=== PATIENT | male | born 2000 | race Caucasian/White ===

== ENCOUNTER 2021-04-24 08:09 | Emergency (ER) | payer OTHER ==
[~2021-04-24] VITALS: Ht 195 cm; Wt 104.5 kg
--- OUTSIDE RECORDS SUMMARY | 2021-04-24 08:18 | XMS REPORT | Summary of Care ---
Author Author [facility] Organization [facility] Address Unknown Phone Unavailable Encounter DAVIN Raygoza [id number] Date(s): 03/09/21 - 03/14/21 [facility] [address] [id number] Encounter Diagnosis Sore throat (Discharge Diagnosis) - 03/09/21 Discharge Disposition: Home - Attending Physician: MABEL FITZGERALD MD Vital Signs Most recent to 1 oldest [Reference Range]: Temperature 97.5 DegF [96.8-99.7 DegF] (03/09/21 10:48 AM) Temp Method Temporal (03/09/21 10:48 AM) Pulse Rate [60-100 44 bpm bpm] *LOW* (03/09/21 10:48 AM) Respiratory Rate 18 br/min [15-20 br/min] (03/09/21 10:48 AM) Mean Arterial 92 mmHg Pressure [65 mmHg] (03/09/21 10:48 AM) Blood Pressure 150/63 mmHg [90-180/50-90 mmHg] (03/09/21 10:48 AM) Blood Pressure Automatic Method (03/09/21 10:48 AM) Blood Pressure Sitting Position (03/09/21 10:48 AM) Problem List No Known Problems Allergies, Adverse Reactions, Alerts No Known Allergies Medications amoxicillin 875 mg oral tablet 1 TAB, PO, Q12H (Every 12 hours), X 10 day, # 20 TAB, 0 Refill(s), Pharmacy: [id number], 182.9, 10/17/19 16:50:00 CDT, Clinical Height, cm, 96.5, 16:50:00 CDT, Clinical Weight, kg Start Date: 03/09/21 Stop Date: 03/19/21 Status: Ordered Results No data available for this section Immunizations No data available for this section Procedures No data available for this section Social History No data available for this section Functional Status No data available for this section Assessment and Plan No data available for this section Hospital Discharge Instructions No data available for this section
--- NOTE | 2021-04-24 08:50 | ED Abdominal Pain ---
General Chief Complaint: Abdominal/GI Problems Stated Complaint: N/V,ABD PAIN Nursing Triage Note: AMB TO ROOM REPORTS IS HAVING R UPPER QUAD PAIN VOMITED TODAY. HAS HAD DIARRHEA FOR SEVERAL DAYS. WAS SEEN AT [facility] LAST WEEK FOR URI COVID WAS NEG. Source of Information: Patient Exam Limitations: No Limitations (RUSS ROWELL STUDENT) History of Present Illness Date Seen by Provider: Apr 24, 2021 Time Seen by Provider: 08:25 Initial Comments This is Hernandez, a 21 yo M, who is here with c/o abdominal pain. Pt states that last week he had upper respiratory symptoms including, cough, rhinitis, purulent discharge, and increased work of breathing. Pt went to [facility] health center and tested negative for covid-19.At this point in time, he was given Amoxicillin, last dose was 04/21/21. For the past six days pt has been having periumbilical and epigastric pain described as dull and achy, rated at 4/10. Denies radiation. Pt has been having diarrhea for the same amount of time, states that it is yellow and will sometimes have blood in it. Pt has been vomiting bile with some blood in it, this started this morning. Pt reports that he was on the phone with his mother this morning and then woke up, ten minutes later, lying on the ground with his phone next to him, has previous history of syncope. Had chills and diaphoresis with vomiting this morning. Positive for abdominal pain, diarrhea, nausea, vomiting, loss of appetite and fatigue. Denies fevers, headaches, chest pain, palpitations, constipation. Timing/Duration: 6-7 Days Severity/Quality: Mild Location: Periumbilical (worse on R side) Radiation: No Radiation Activities at Onset: None Modifying Factors: Improves With Exercise; Worsens With Vomiting Associated Symptoms: Diaphoresis, Fever/Chills, Fatigue, Nausea/Vomiting, Syncope (RUSS ROWELL STUDENT) Allergies and Home Medications Allergies Coded Allergies: No Known Drug Allergies (Unverified , 04/24/21) Patient Home Medication List Home Medication List Reviewed: Yes (EDELMIRA WILSON MD) Famotidine (Pepcid) 20 Mg Tablet, 20 MG PO BID Prescribed by: EDELMIRA HAYNES on 04/24/21 1029 Ondansetron (Ondansetron Odt) 4 Mg Tab.rapdis, 4 MG PO Q4H PRN for NAUSEA/VOMITING Prescribed by: EDELMIRA HAYNES on 04/24/21 1029 Review of Systems Review of Systems Constitutional: chills, diaphoresis, malaise EENTM: No Blurred Vision, No Double Vision Respiratory: Cough; Denies Shortness of Air, Denies Stridor, Denies Wheezing Cardiovascular: Denies Chest Pain, Denies Palpitations; Syncope Gastrointestinal: Abdominal Pain, Blood Streaked Stools; Denies Constipated; Diarrhea, Nausea, Poor Appetite, Vomiting Genitourinary: Denies Burning, Denies Discharge, Denies Drainage Musculoskeletal: no symptoms reported Skin: no symptoms reported Psychiatric/Neurological: No Symptoms Reported (RUSS ROWELL) Past Kxaamkb-Mhutww-Dcxkde Hx Patient Social History Tobacco Use?: No Use of E-Cig and/or Vaping dev: Yes Substance use?: No Alcohol Use?: Yes Alcohol Frequency: Rarely Pt feels they are or have been: No (RUSS ROWELL) Past Medical History Surgeries: Yes ( ) Orthopedic (ulnar ligament repair) Respiratory: No Cardiac: No Genitourinary: No Gastrointestinal: No Musculoskeletal: No (RUSS ROWELL) Family Medical History Diabetes (maternal grandfather ) (RUSS ROWELL) Physical Exam Vital Signs Vital Signs - First Documented 04/24/21 08:19 Temp 36.2 Pulse 57 Resp 18 B/P (MAP) 144/86 (105) Pulse Ox 95 O2 Delivery Room Air (EDELMIRA WILSON MD) Vital Signs Capillary Refill : Less Than 3 Seconds (RUSS ROWELL STUDENT) Height/Weight/BMI Height: '" Weight: lbs. oz. kg; 27.00 BMI Method: General Appearance: WD/WN, mild distress HEENT: No scleral icterus (L) Neck: full range of motion Respiratory: chest non-tender, lungs clear, normal breath sounds, no respiratory distress Cardiovascular: normal peripheral pulses, regular rate, rhythm, no murmur Peripheral Pulses: 2+ Radial Pulses (L) Gastrointestinal: normal bowel sounds, tenderness (periumbilical) Neurologic/Psychiatric: spinner frame II-XII nml as tested, alert, normal mood/affect, oriented x 3 Skin: normal color, warm/dry (RUSS ROWELL MED STUDENT) Progress/Results/Core Measures Results/Orders Lab Results Laboratory Tests Test 04/24/21 09:00 04/24/21 09:30 Range/Units White Blood Count 6.0 4.3-11.0 10^3/uL Red Blood Count 4.95 4.30-5.52 10^6/uL Hemoglobin 14.9 13.3-17.7 g/dL Hematocrit 43 40-54 % Mean Corpuscular Volume 86 80-99 fL Mean Corpuscular Hemoglobin 30 25-34 pg Mean Corpuscular Hemoglobin Concent 35 32-36 g/dL Red Cell Distribution Width 12.8 10.0-14.5 % Platelet Count 238 130-400 10^3/uL Mean Platelet Volume 10.0 9.0-12.2 fL Immature Granulocyte % (Auto) 0 % Neutrophils (%) (Auto) 61 42-75 % Lymphocytes (%) (Auto) 25 12-44 % Monocytes (%) (Auto) 11 0-12 % Eosinophils (%) (Auto) 2 0-10 % Basophils (%) (Auto) 1 0-10 % Neutrophils # (Auto) 3.7 1.8-7.8 10^3/uL Lymphocytes # (Auto) 1.5 1.0-4.0 10^3/uL Monocytes # (Auto) 0.6 0.0-1.0 10^3/uL Eosinophils # (Auto) 0.1 0.0-0.3 10^3/uL Basophils # (Auto) 0.1 0.0-0.1 10^3/uL Immature Granulocyte # (Auto) 0.0 0.0-0.1 10^3/uL Prothrombin Time 14.2 12.2-14.7 SEC INR Comment 1.1 0.8-1.4 Activated Partial Thromboplast Time 27 24-35 SEC Sodium Level 139 135-145 MMOL/L Potassium Level 3.8 3.6-5.0 MMOL/L Chloride Level 104 98-107 MMOL/L Carbon Dioxide Level 23 21-32 MMOL/L Anion Gap 12 5-14 MMOL/L Blood Urea Nitrogen 12 7-18 MG/DL Creatinine 0.93 0.60-1.30 MG/DL Estimat Glomerular Filtration Rate 102 BUN/Creatinine Ratio 13 Glucose Level 97 70-105 MG/DL Calcium Level 9.9 8.5-10.1 MG/DL Corrected Calcium 8.5-10.1 MG/DL Magnesium Level 2.2 1.6-2.4 MG/DL Total Bilirubin 1.2 H 0.1-1.0 MG/DL Aspartate Amino Transf (AST/SGOT) 28 5-34 U/L Alanine Aminotransferase (ALT/SGPT) 22 0-55 U/L Alkaline Phosphatase 88 40-136 U/L C-Reactive Protein High Sensitivity 0.50 0.00-0.50 MG/DL Total Protein 7.7 6.4-8.2 GM/DL Albumin 4.6 H 3.2-4.5 GM/DL Lipase 9 8-78 U/L Urine Color YELLOW Urine Clarity CLEAR Urine pH 6.0 5-9 Urine Specific Eldena >=1.030 1.016-1.022 Urine Protein NEGATIVE NEGATIVE Urine Glucose (UA) NEGATIVE NEGATIVE Urine Ketones 2+ H NEGATIVE Urine Nitrite NEGATIVE NEGATIVE Urine Bilirubin NEGATIVE NEGATIVE Urine Urobilinogen 0.2 < = 1.0 MG/DL Urine Leukocyte Esterase NEGATIVE NEGATIVE Urine RBC (Auto) NEGATIVE NEGATIVE Urine RBC NONE /HPF Urine WBC NONE /HPF Urine Squamous Epithelial Cells RARE /HPF Urine Crystals PRESENT H /LPF Urine Amorphous Sediment RARE RUBY URATES H /LPF Urine Bacteria NEGATIVE /HPF Urine Casts NONE /LPF Urine Mucus MODERATE H /LPF Urine Culture Indicated NO (EDELMIRA WILSON MD) My Orders Orders - EDELMIRA WILSON MD Ed Iv/Invasive Line Start (04/24/21 08:46) Ekg Tracing (04/24/21 08:46) Monitor-Rhythm Ecg Trace Only (04/24/21 08:46) Cbc With Automated Diff (04/24/21 08:46) Comprehensive Metabolic Panel (04/24/21 08:46) Hs C Reactive Protein (04/24/21 08:46) Lipase (04/24/21 08:46) Ua Culture If Indicated (04/24/21 08:46) Ed Iv/Invasive Line Start (04/24/21 08:46) Lactated Ringers (Lr 1000 Ml Iv Solution (04/24/21 09:00) Stool Culture (04/24/21 08:46) Fecal Wbc (04/24/21 08:46) Occult Blood Stool (04/24/21 08:46) Ondansetron Injection (Zofran Injectio (04/24/21 09:00) Magnesium (04/24/21 08:50) Protime With Inr (04/24/21 09:00) Partial Thromboplastin Time (04/24/21 09:00) Famotidine Injection (Pepcid Injection) (04/24/21 10:30) (EDELMIRA WILSON MD) Medications Given in ED Current Medications Medications Dose Ordered Sig/Rubi Route Start Time Stop Time Status Last Admin Dose Admin Famotidine 20 mg ONCE ONCE IVP 04/24/21 10:30 04/24/21 10:31 DC 04/24/21 10:30 20 MG Lactated Ringer's 1,000 ml @ 0 mls/hr Q0M ONCE IV 04/24/21 09:00 04/24/21 09:01 DC 04/24/21 09:02 1,000 MLS/HR Ondansetron HCl 8 mg ONCE ONCE IVP 04/24/21 09:00 04/24/21 09:01 DC 04/24/21 09:02 8 MG (EDELMIRA WILSON MD) Vital Signs/I&O 04/24/21 04/24/21 08:19 10:43 Temp 36.2 Pulse 57 57 Resp 18 18 B/P (MAP) 144/86 (105) 146/7 Pulse Ox 95 98 O2 Delivery Room Air Room Air (EDELMIRA WILSON MD) Blood Pressure Mean: 105 Progress Progress Note : Time: 10:30 Progress Note Hernandez is here for abdominal pain. Pt states that he is doing much better after zofran and pepcid. Advised to continue with a clear diet for the next 24 hours. Avoid dairy and greasy foods until 48 hours post symptom-free. It was recommended to talk with a general surgeon about egd/colonscopy due to the hematochezia and hematemesis. A at-home stool culture was ordered to evaluate colonic mayte disruption and because he recently finished a course of Amoxicillin. \\ Zofran and Pepcid being sent to [facility]. Pt is agreeable to the above plan. Reviewed concerning signs and symptoms, for which to return to the ED. (RUSS ROWELL MED STUDENT) Progress Note : Progress Note Patient's work-up was relatively unremarkable. He responded well to fluids, Pepcid, and Zofran in the ER. EVONNE was performed and demonstrated no masses or other abnormalities at the rectum. Hemoccult was negative. There was no active bleeding in the ER and he produced no stool specimens. Kit for stool specimen collection and order for the lab was provided at discharge. We discussed referral to a surgeon for possible endoscopy. Patient reported no family history of inflammatory bowel disease. He was discharged in stable condition. We also discussed patient's syncope. He reports this seems to be psychogenic in nature, stating that he will occasionally faint during psychosocial stress. He was having a stressful conversation with his mother on the phone at the time of his syncopal event this morning. (EDELMIRA WILSON MD) Initial ECG Impression Date: Apr 24, 2021 Initial ECG Impression Time: 08:54 Initial ECG Rate: 45 Initial ECG Rhythm: S.Mitch Comment Sinus bradycardia with no ST elevation or depression. ST changes likely represent early repolarization of juvenile pattern. Heart rate of 45 is likely normal in this fit young man. Questionable LVH by automated read. No abnormal intervals. 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 Decision time for Depature: 10:23 (EDELMIRA WILSON MD) Referrals: JUSTIN CUEVAS BRETT D DO KIDO, TAKAAKI MD [facility] (PCP) Primary Care Physician Patient Instructions: Abdominal Pain, Adult ED, Bloody Stools, Adult ED Add. Discharge Instructions: Start with a noncarbonated clear liquid diet for the next 24 hours. Clear liquids include sports drinks, Pedialyte, water, clear juices, Jell-O, chicken broth, etc. After 24 hours you may gradually advance your diet with small quantities of bland food as tolerated. Avoid fatty or greasy foods or dairy products until your diarrhea has resolved for at least 48 hours. Collect a stool specimen in the toilet hat provided. Place it in a jar and label it with your name, time, and date. Return the specimen jar along with the lab order to the hospital as soon as possible after it is collected. Follow-up at the [facility] or at your primary care provider's office as soon as possible. Because there is concern for blood in your stool and vomit, you should consider referral to a surgeon for colonoscopy and/or EGD (scopes of your colon, stomach and esophagus). For pain you may take Tylenol (acetaminophen) up to 1000 mg every 6 hours as needed. Avoid use of NSAID medications such as ibuprofen or naproxen as these may worsen stomach irritation and bleeding. A list of local surgeons is provided below for your convenience. Use Pepcid (famotidine) twice a day for the next couple of weeks as prescribed. Use the Zofran (ondansetron) as prescribed for nausea and vomiting as needed. Call with questions or concerns. Return to the ER if you have any worsening of condition. All discharge instructions reviewed with patient and/or family. Voiced understanding. Scripts Famotidine (Pepcid) 20 Mg Tablet 20 MG PO BID, #30 TAB Prov: EDELMIRA WILSON MD 04/24/21 Ondansetron (Ondansetron Odt) 4 Mg Tab.rapdis 4 MG PO Q4H PRN for NAUSEA/VOMITING, #10 TAB Prov: EDELMIRA WILSON MD 04/24/21 Medical Student Attestation and Attending Note: I have personally interviewed and examined this patient along with Russ Rowell MS4. I have reviewed student documentation including history, physical, and assessments. I agree with the documentation except where otherwise noted. Exam: General: Alert, oriented, no acute distress, well developed HEENT: Normocephalic and atraumatic Heart: Regular rate and rhythm without murmur Lungs: Clear to auscultation bilaterally with normal effort Abdomen: Soft, tender in the epigastrium, nondistended, normal bowel sounds Neuropsych: Alert, oriented, no focal deficits Skin: Warm and dry without rashes, abrasion on the left knee (EDELMIRA WILSON MD) Copy Copies To 1: ELIZABETH KAHN MD, KATHRYN MED STUDENT Apr 24, 2021 08:50 EDELMIRA WILSON MD Apr 24, 2021 10:28
[2021-04-24] MEDS ORDERED: LACTATED RINGERS 1,000 ML IV ONE (09:00)
[2021-04-24] MEDS ORDERED: ONDANSETRON 4 MG/2 ML (SDV) Z0FRAN IVP ONE (09:00)
[2021-04-24 09:15] LABS: BASOPHILS # (AUTO) 0.1 10^3/uL (0.0-0.1); BASOPHILS % (AUTO) 1 % (0-10); EOSINOPHILS # (AUTO) 0.1 10^3/uL (0.0-0.3); EOSINOPHILS % (AUTO) 2 % (0-10); HEMATOCRIT 43 % (40-54); HEMOGLOBIN 14.9 g/dL (13.3-17.7); LYMPHOCYTES # (AUTO) 1.5 10^3/uL (1.0-4.0); LYMPHOCYTES % (AUTO) 25 % (12-44); MEAN CORPUSCULAR HEMOGLOBIN 30 pg (25-34); MEAN CORPUSCULAR HGB CONC 35 g/dL (32-36); MEAN CORPUSCULAR VOLUME 86 fL (80-99); MONOCYTES # (AUTO) 0.6 10^3/uL (0.0-1.0); MONOCYTES % (AUTO) 11 % (0-12); NEUTROPHILS # (AUTO) 3.7 10^3/uL (1.8-7.8); NEUTROPHILS % (AUTO) 61 % (42-75); PLATELET COUNT 238 10^3/uL (130-400)
[2021-04-24 09:29] LABS: ALBUMIN 4.6 GM/DL (3.2-4.5); CHLORIDE 104 MMOL/L (98-107); POTASSIUM 3.8 MMOL/L (3.6-5.0); SODIUM 139 MMOL/L (135-145)
[2021-04-24 09:30] LABS: INR 1.1 (0.8-1.4); PROTHROMBIN TIME PATIENT 14.2 SEC (12.2-14.7)
[2021-04-24 09:31] LABS: CALCIUM 9.9 MG/DL (8.5-10.1)
[2021-04-24 09:32] LABS: GLUCOSE 97 MG/DL (70-105); TOTAL PROTEIN 7.7 GM/DL (6.4-8.2)
[2021-04-24 09:33] LABS: CARBON DIOXIDE 23 MMOL/L (21-32)
[2021-04-24 09:34] LABS: BILIRUBIN,TOTAL 1.2 MG/DL (0.1-1.0)
[2021-04-24 09:35] LABS: ALKALINE PHOSPHATASE 88 U/L (40-136)
[2021-04-24 09:35] LABS: BILIRUBIN,URINE NEGATIVE (NEGATIVE); CLARITY,URINE CLEAR; COLOR,URINE YELLOW; GLUCOSE, URINE (UA) NEGATIVE (NEGATIVE); KETONES,URINE 2+ (NEGATIVE); LEUKOCYTE ESTERASE ,URINE NEGATIVE (NEGATIVE); NITRITE,URINE NEGATIVE (NEGATIVE); PROTEIN,URINE NEGATIVE (NEGATIVE)
[2021-04-24 09:36] LABS: CREATININE SERUM 0.93 MG/DL (0.60-1.30); GFR ESTIMATED 102
[2021-04-24 09:37] LABS: BUN/CREATININE RATIO 13
[2021-04-24 09:38] LABS: ALANINE AMINOTRANSFERASE 22 U/L (0-55); MAGNESIUM 2.2 MG/DL (1.6-2.4)
[2021-04-24 09:39] LABS: LIPASE 9 U/L (8-78)
[2021-04-24 09:46] LABS: AMORPHOUS SEDIMENT,UR RARE AMOR URATES /LPF; BACTERIA,URINE NEGATIVE /HPF; SQUAMOUS EPITHELIAL CELL,UR RARE /HPF
[2021-04-24] MEDS ORDERED: FAMO-119 PO (10:29)
[2021-04-24] MEDS ORDERED: ONDA4TAB11 PO (10:29)
[2021-04-24] MEDS ORDERED: FAMOTIDINE 20MG/2ML IV (PEPCID) IVP ONE (10:30)
[2021-04-24 10:43] VITALS: BP 146/7
== END 2021-04-24 10:43 | disposition home or self-care (01) ==
LOC: ER 08:15
DX: R10.33 Periumbilical pain (principal); R19.7 Diarrhea, unspecified; K92.1 Melena; K92.0 Hematemesis; R55 Syncope and collapse
CPT/HCPCS: 36415; 80053; 81000; 83690; 83735; 85025; 85610; 85730; 86141; 93005

== ENCOUNTER → 2021-04-24 | Outpatient (CLI) | payer OTHER ==
[~2021-04-24] MED LIST: FAMO-119 PO; ONDA4TAB11 PO
== END ==
LOC: LAB 21:36
PROVIDERS: ATTEND Family Medicine
DX: K92.1 Melena (principal); R11.2 Nausea with vomiting, unspecified; R19.7 Diarrhea, unspecified
CPT/HCPCS: 82274; 87015; 87045; 87046; 87324; 87328; 87329; 87449; 87899

== ENCOUNTER 2021-05-04 21:05 | Emergency (ER) | payer OTHER ==
[~2021-05-04] VITALS: Ht 195.6 cm; Wt 104.5 kg
--- NOTE | 2021-05-04 21:19 | ED Head Injury ---
General Chief Complaint: Laceration Stated Complaint: HIT IN HEAD Source: patient Exam Limitations: no limitations History of Present Illness Date Seen by Provider: May 04, 2021 Time Seen by Provider: 21:17 Initial Comments To ER with reports that he was doing some sort of exercise with a bungee cord attached to a fence. The spring that was attaching the bungee cord to the fence broke and came back and hit him in the center of the forehead. He has a laceration to this area as well as a severe headache. He did pass out but he states that he only passed out after he opened his eyes and saw all of the blood. He had some nausea but no vomiting. No dizziness. No blood thinner use. Tetanus was updated in 2019. Occurred: just prior to arrival Severity: moderate Location: frontal Method of Injury: unknown Loss of Consciousness: no loss of consciousness Associated Systoms: Denies Symptoms Allergies and Home Medications Allergies Coded Allergies: No Known Drug Allergies (Unverified , 04/24/21) Patient Home Medication List Home Medication List Reviewed: Yes Discontinued Medications Famotidine (Pepcid) 20 Mg Tablet, 20 MG PO BID Discontinued Reason: No Longer Taking Prescribed by: EDELMIRA HAYNES on 04/24/21 1029 Last Action: Discontinued Ondansetron (Ondansetron Odt) 4 Mg Tab.rapdis, 4 MG PO Q4H PRN for NAUSEA/VOMITING Discontinued Reason: No Longer Taking Prescribed by: EDELMIRA HAYNES on 04/24/21 1029 Last Action: Discontinued Review of Systems Review of Systems Constitutional: see HPI Eyes: No Symptoms Reported Ears, Nose, Mouth, Throat: no symptoms reported Respiratory: no symptoms reported Cardiovascular: no symptoms reported Genitourinary: no symptoms reported Musculoskeletal: no symptoms reported Skin: no symptoms reported Psychiatric/Neurological: See HPI; Denies Cognitive Dysfunction; Headache Endocrine: No Symptoms Reported Hematologic/Lymphatic: No Symptoms Reported Past Jgyfoht-Jkxxdi-Egeoha Hx Patient Social History Tobacco Use?: Yes Substance use?: No Alcohol Use?: Yes Alcohol Frequency: Once in a while Pt feels they are or have been: No Past Medical History Surgery/Hospitalization HX: ortho Surgeries: Yes ( ) Orthopedic Respiratory: No Cardiac: No Genitourinary: No Gastrointestinal: No Musculoskeletal: No Family Medical History Diabetes Physical Exam Vital Signs Vital Signs - First Documented 05/04/21 21:09 Temp 36.6 Pulse 48 Resp 16 B/P (MAP) 149/76 (100) Pulse Ox 98 O2 Delivery Room Air Capillary Refill : Height, Weight, BMI Height: '" Weight: lbs. oz. kg; 27.00 BMI Method: General Appearance: WD/WN, no apparent distress HEENT: PERRL/EOMI, normal ENT inspection, other (Tympanic membrane's obscured by cerumen) Neck: non-tender, full range of motion Respiratory: no respiratory distress, no accessory muscle use Extremities: normal range of motion, non-tender Psychiatric: alert Crainal Nerves: normal hearing, normal speech, PERRL Skin: normal color, warm/dry Rosales Coma Score Best Eye Response: (4) Open Spontaneously Best Verbal Response: (5) Oriented Best Motor Response: (6) Obeys Commands [place] Total: 15 Procedures/Interventions Wound Location: Face Wound Length (cm): 1.5 Wound's Depth, Shape: linear, sub Q Wound Explored: clean Anesthesia: Lidocaine w/ Epi Volume Anesthetic (ccs): 2 Suture: Prolene Suture Size: 5-0 Number of Sutures: 1 (1 continuous suture) Layer Closure?: 1 Number Deep Layer Sutures: 0 Progress/Results/Core Measures Results/Orders My Orders Orders - KATT VARGAS APRN Ct Head Wo (05/04/21 21:15) Acetaminophen Tablet (Tylenol Tablet) (05/04/21 22:00) Ibuprofen Tablet (Motrin Tablet) (05/04/21 22:00) Vital Signs/I&O 05/04/21 21:09 Temp 36.6 Pulse 48 Resp 16 B/P (MAP) 149/76 (100) Pulse Ox 98 O2 Delivery Room Air Departure Impression Primary Impression: Forehead laceration Additional Impression: Frontal sinus fracture Disposition: 01 HOME, SELF-CARE Condition: Stable Departure-Patient Inst. Decision time for Depature: 21:44 Referrals: [facility] (PCP/Family) Primary Care Physician Patient Instructions: Laceration Repair With Stitches ED Add. Discharge Instructions: 1. Return to ER in 5 to 7 days to have the stitches removed. You can shower letting water run over this starting tonight. Tylenol and ibuprofen for headache. Scripts Amoxicillin (Amoxicillin) 500 Mg Capsule 500 MG PO TID, #21 CAP 0 Refills Prov: KATT VARGAS APRN 05/04/21 Work/School Note: Work Release Form Date Seen in the Emergency Department: May 04, 2021 Return to Work: May 05, 2021 KATT VARGAS APRN May 04, 2021 21:19
[2021-05-04] MEDS ORDERED: ACETAMINOPHEN 500 MG TAB (TYLENOL) PO ONE (22:00)
[2021-05-04] MEDS ORDERED: IBUPROFEN 800 MG (MOTRIN) TAB PO ONE (22:00)
--- NOTE | 2021-05-04 22:00 | Diagnostic Imaging Report ---
PROCEDURE: CT head without contrast. TECHNIQUE: Multiple contiguous axial images were obtained through the brain without the use of intravenous contrast. Auto Exposure Controls were utilized during the CT exam to meet ALARA standards for radiation dose reduction. INDICATION: Laceration. pain. COMPARISON: None. FINDINGS: There is no intracranial hemorrhage, hydrocephalus, edema, mass, mass effect or evidence for an elevation of the intracerebral pressures. There is a mildly depressed fracture through the anterior cortex of the right sphenoid sinus just right of midline deep to some overlying soft tissue swelling and skin irregularity. There was no associated hemosinus and the posterior wall of the frontal sinus intact. There is no pneumocephalus. No other osseous injury. IMPRESSION: Mildly depressed fracture through the heart isolated to the anterior cortex of the right frontal sinus superiorly without hemosinus, posterior wall fracture or pneumocephalus. No intracerebral hemorrhage or acute brain pathology. Dictated by: Dictated on workstation # [id number]
[2021-05-04] MEDS ORDERED: AMOX500C2 PO (22:02)
[2021-05-04 22:15] VITALS: BP 155/98
== END 2021-05-04 22:15 | disposition home or self-care (01) ==
LOC: EDUNIT# 21:05 → ER 21:06
DX: S02.19XA Other fracture of base of skull, initial encounter for closed fracture (principal); S01.81XA Laceration without foreign body of other part of head, initial encounter; R40.2410 Glasgow coma scale score 13-15, unspecified time; Z72.0 Tobacco use; W22.8XXA Striking against or struck by other objects, initial encounter
CPT/HCPCS: 12002; 70450

== ENCOUNTER 2021-05-11 18:03 | Emergency (ER) | payer OTHER ==
[~2021-05-11] VITALS: Ht 77 cm; Wt 97.0 kg
[~2021-05-11 18:03] MED LIST changes: +AMOX500C2 PO
[2021-05-11 18:20] VITALS: BP 110/62
== END 2021-05-11 18:20 | disposition home or self-care (01) ==
LOC: EDUNIT# 18:03 → ER 18:05
DX: Z48.02 Encounter for removal of sutures (principal)